=== PATIENT | female | born 1935 | race Caucasian/White ===

== ENCOUNTER 2016-08-09 13:45 | Emergency (ER) | payer MEDICARE ==
[2016-08-09 15:04] LABS: BASOPHILS 0.3 % (0.0-2.0); EOSINOPHILS 1.2 % (0-7); HEMATOCRIT 38.5 % (36.0-48.0); HEMOGLOBIN 12.9 g/dL (12-16); IMMATURE GRANULOCYTES 0.3 % (0-5); LYMPHOCYTES 28.5 % (15-50); MCH 32.9 pg (26.0-34.0); MCHC 33.5 g/dL (31.0-37.0); MCV 98.2 fL (80.0-100.0); MEAN PLATELET VOLUME 9.3 fL (7.4-10.4); MONOCYTES 7.1 % (2-11); NEUTROPHILS 62.6 % (40-80); PLATELET COUNT 410 10x3/uL (130-400); RBC 3.92 10x6/uL (4.00-5.40); RDW 12.2 % (11.5-14.5); WBC 9.2 10x3/uL (4.8-10.8)
[2016-08-09 15:25] LABS: APPEARANCE HAZY (CLEAR); BILIRUBIN NEGATIVE (NEGATIVE); COLOR YELLOW (YELLOW); GLUCOSE NEGATIVE (NEGATIVE); KETONE NEGATIVE (NEGATIVE); LEUKOCYTE ESTERASE 2+ (NEGATIVE); NITRITE NEGATIVE (NEGATIVE); PROTEIN NEGATIVE (NEGATIVE); SPECIFIC GRAVITY 1.005 (1.005-1.020); UROBILINOGEN NORMAL (NORMAL)
[2016-08-09 15:26] LABS: BACTERIA FEW /hpf (NONE SEEN); EPITHELIAL CELLS 0-5 /hpf (0-5); RED CELLS - URINE 0-5 /hpf (0-5)
[2016-08-09 15:35] LABS: ALBUMIN 3.5 g/dL (3.4-5.0); ANION GAP 13.3 mmol/L (8-16); BILIRUBIN - TOTAL 0.5 mg/dL (0.2-1.3); CREATININE - SERUM 1.1 mg/dL (0.6-1.3); POTASSIUM - SERUM 4.3 mmol/L (3.5-5.1); PROTEIN - SERUM 7.6 g/dL (6.4-8.2)
== END 2016-08-09 17:30 | disposition home or self-care (01) ==
LOC: D.ER 13:45
PROVIDERS: Family Medicine; Physician Assistant
DX: R55 Syncope and collapse (principal); J44.9 Chronic obstructive pulmonary disease, unspecified; K21.9 Gastro-esophageal reflux disease without esophagitis; H40.9 Unspecified glaucoma; I10 Essential (primary) hypertension; K27.9 Peptic ulcer, site unspecified, unspecified as acute or chronic, without hemorrhage or perforation

== ENCOUNTER 2020-01-22 17:08 | Inpatient (IN) | payer MEDICARE ==
[~2020-01-22] VITALS: Ht 152.4 cm; Wt 52.7 kg
[2020-01-22] MEDS ORDERED: NEXIUM40 MG PO (17:23)
[2020-01-22] MEDS ORDERED: VITAMIN D5000 UNI1 PO (17:23)
[2020-01-22] MEDS ORDERED: FOLIC ACID1 MG PO (17:23)
[2020-01-22] MEDS ORDERED: XANAX0.25 MG PO (17:24)
[2020-01-22] MEDS ORDERED: PROBIOTIC BLEN1 EACH PO (17:25)
[2020-01-22] MEDS ORDERED: TENORMIN25 MG PO (17:25)
[2020-01-22] MEDS ORDERED: PLAVIX75 MG PO (17:25)
[2020-01-22] MEDS ORDERED: TAPAZOLE 5 MG TA5 MG PO (17:25)
[2020-01-22] MEDS ORDERED: NORVASC2.5 MG PO (17:26)
[2020-01-22] MEDS ORDERED: FLOMAX0.4 MG PO (17:27)
[2020-01-22] MEDS ORDERED: LIPITOR40 MG PO (17:27)
[2020-01-22] MEDS ORDERED: REMERON15 MG PO (17:27)
[2020-01-22] MEDS ORDERED: TIMOPTIC 0.25% O5 M1 EACH EYE (17:28)
[2020-01-22] MEDS ORDERED: ALPHAGAN 0.2%5 ML EACH EYE (17:28)
[2020-01-22] MEDS ORDERED: ESTRACE 0.0142.5 GM VG (17:28)
[2020-01-22] MEDS ORDERED: HYDROCODON-ACE1 EA10 PO (17:29)
[2020-01-22] MEDS ORDERED: XALATAN 0.0052.5 ML EACH EYE (17:29)
[2020-01-22] MEDS ORDERED: ZANAFLEX4 MG PO (17:30)
[2020-01-22] MEDS ORDERED: PHENERGAN25 M1 PO (17:30)
[2020-01-22] MEDS ORDERED: VOLTAREN100 GM TOPICAL (17:31)
[2020-01-22] MEDS ORDERED: BENTYL10 MG PO (17:31)
[2020-01-22 17:53] VITALS: BP 192/85
[2020-01-22 18:21] LABS: BASOPHILS 0.4 % (0-2); EOSINOPHILS 2.1 % (0-7); HEMATOCRIT 37.5 % (36.0-48.0); HEMOGLOBIN 12.4 g/dL (12-16); IMMATURE GRANULOCYTES 0.2 % (0-5); MCH 33.8 pg (26.0-34.0); MCHC 33.1 g/dL (31.0-37.0); MCV 102.2 fL (80.0-100.0); MEAN PLATELET VOLUME 8.8 fL (7.4-10.4); MONOCYTES 5.3 % (2-11); PLATELET COUNT 439 10x3/uL (130-400); RBC 3.67 10x6/uL (4.00-5.40); RDW 12.8 % (11.5-14.5); WBC 10.3 10x3/uL (4.8-10.8)
[2020-01-22 18:32] LABS: APTT 30.6 SECONDS (22.8-39.4); INR 0.98 (0.85-1.17); PROTIME 12.9 SECONDS (11.6-15.0)
[2020-01-22 18:36] LABS: CALC OSMOLALITY 269 mosm/kg (275-300); CALCIUM 9.4 mg/dL (8.5-10.1); CARBON DIOXIDE 26.7 mmol/L (21.0-32.0); CHLORIDE - SERUM 99 mmol/L (98-107); CREATININE - SERUM 1.7 mg/dL (0.6-1.3); GLUCOSE 110 mg/dL (74-106); POTASSIUM - SERUM 4.2 mmol/L (3.5-5.1); SODIUM 134 mmol/L (136-145); UREA NITROGEN 15 mg/dL (7-18); eGFR NON AFRICAN AMERICAN 30 mL/min (90-120)
[2020-01-22 18:52] LABS: ALBUMIN 3.8 g/dL (3.4-5.0); ALKALINE PHOSPHATASE 100 U/L (30-120); ALT (SGPT) 22 U/L (10-68); BILIRUBIN - TOTAL 0.47 mg/dL (0.2-1.3); CKMB 0.7 U/L (0.0-3.6); CREATINE KINASE 59 UL (21-215); MAGNESIUM - SERUM 1.9 mg/dL (1.8-2.4); PROTEIN - SERUM 8.4 g/dL (6.4-8.2); THYROID STIMULATING HORMONE 2.82 uIU/mL (0.36-3.74); TROPONIN-I < 0.017 ng/mL (0.000-0.060)
[2020-01-22 19:00] VITALS: BP 194/86
[2020-01-22 19:44] LABS: BILIRUBIN NEGATIVE (NEGATIVE); GLUCOSE NEGATIVE (NEGATIVE); KETONE NEGATIVE (NEGATIVE); NITRITE NEGATIVE (NEGATIVE); UROBILINOGEN NORMAL (NORMAL)
[2020-01-22 20:08] VITALS: BP 115/64
--- NOTE | 2020-01-22 20:52 | NUR ---
PT RESTING WITH EYES CLOSED. RESPIRATIONS APPEAR EVEN AND NON LABORED. VSS, WILL CONTINUE TO MONITOR. DAUGHTER LEFT PHONE NUMBER WITH NURSE TO CALL WITH ROOM NUMBER.
[2020-01-22 21:34] VITALS: BP 130/70
[2020-01-22 22:08] VITALS: BP 146/75
[2020-01-23 00:39] VITALS: BP 163/88
[2020-01-23 03:02] VITALS: Ht 152.4 cm; Wt 52.7 kg
[2020-01-23 04:57] LABS: BASOPHILS 0.5 % (0-2); EOSINOPHILS 4.1 % (0-7); HEMATOCRIT 31.6 % (36.0-48.0); HEMOGLOBIN 10.5 g/dL (12-16); IMMATURE GRANULOCYTES 0.1 % (0-5); LYMPHOCYTES 36.9 % (15-50); MCH 33.5 pg (26.0-34.0); MCHC 33.2 g/dL (31.0-37.0); MONOCYTES 6.5 % (2-11); NEUTROPHILS 51.9 % (40-80); PLATELET COUNT 430 10x3/uL (130-400); RBC 3.13 10x6/uL (4.00-5.40); RDW 12.9 % (11.5-14.5); WBC 8.3 10x3/uL (4.8-10.8)
[2020-01-23 05:13] VITALS: BP 148/74
[2020-01-23 05:32] LABS: ALBUMIN 3.2 g/dL (3.4-5.0); ANION GAP 12.5 mmol/L (8-16); BILIRUBIN - TOTAL 0.28 mg/dL (0.2-1.3); CARBON DIOXIDE 24.3 mmol/L (21.0-32.0); CHOL - HDL RATIO 3.1 ratio (2.3-4.1); CREATININE - SERUM 1.6 mg/dL (0.6-1.3); LDL-HDL RATIO 1.4 ratio (1.5-3.5); MAGNESIUM - SERUM 1.8 mg/dL (1.8-2.4); PHOSPHOROUS 3.4 mg/dL (2.5-4.9); POTASSIUM - SERUM 3.8 mmol/L (3.5-5.1); PROTEIN - SERUM 7.6 g/dL (6.4-8.2); THYROID STIMULATING HORMONE 1.94 uIU/mL (0.36-3.74)
[2020-01-23 08:59] VITALS: BP 155/86
--- NOTE | 2020-01-23 11:00 | NUR ---
Rehab Prescreening Consult recieved and the chart has been reviewed. She is a new admit and has a neuro, PT and ST consult ordered and pending. Rehab will follow and see if she qualifies for the acute rehab after her work up has been completed. Aisha Foley RN Clinical Liaison, Rehab
--- NOTE | 2020-01-23 11:07 | NUR ---
I have reviewed this patient and I concur with the Shift Assessment completed by the Licensed Practical Nurse today this shift.
[2020-01-23 13:21] VITALS: BP 120/90
--- NOTE | 2020-01-23 14:47 | NUR ---
MRI BRAIN W/WO ORDERED ON PATIENT. HER GFR IS 32. DR RESENDIZ LOOKED AT THE WITHOUT IMAGES AND DETERMINED THAT SHE DID NOT NEED THE CONTRAST. EXAM WAS DONE WITHOUT.
--- NOTE | 2020-01-23 19:30 | NUR ---
PT IN BED, AAO X 3, RESP EVEN AND UNLABORED, NO DISTRESS NOTED, CL IN REACH, SR UP X 2.
[2020-01-23 20:00] VITALS: BP 219/99
[2020-01-24] VITALS: BP 179/83
[2020-01-24 04:00] VITALS: BP 104/93
[2020-01-24 05:52] LABS: BASOPHILS 0.5 % (0-2); EOSINOPHILS 4.4 % (0-7); HEMATOCRIT 33.9 % (36.0-48.0); HEMOGLOBIN 11.2 g/dL (12-16); IMMATURE GRANULOCYTES 0.3 % (0-5); LYMPHOCYTES 38.7 % (15-50); MCH 33.4 pg (26.0-34.0); MCV 101.2 fL (80.0-100.0); MONOCYTES 8.2 % (2-11); NEUTROPHILS 47.9 % (40-80); PLATELET COUNT 459 10x3/uL (130-400); RBC 3.35 10x6/uL (4.00-5.40); RDW 12.8 % (11.5-14.5); WBC 7.8 10x3/uL (4.8-10.8)
[2020-01-24 06:28] LABS: ANION GAP 14.4 mmol/L (8-16); CALCIUM 9.5 mg/dL (8.5-10.1); CARBON DIOXIDE 23.8 mmol/L (21.0-32.0); CREATININE - SERUM 1.8 mg/dL (0.6-1.3); MAGNESIUM - SERUM 1.9 mg/dL (1.8-2.4); POTASSIUM - SERUM 4.2 mmol/L (3.5-5.1)
[2020-01-24 08:00] VITALS: BP 187/97
[2020-01-24 11:00] VITALS: BP 133/72
[2020-01-24 15:00] VITALS: BP 170/76
--- NOTE | 2020-01-24 19:30 | NUR ---
PT IN BED, SON AT BEDSIDE, PT AAO X 1, CONFUSED AT TIMES. RESP EVEN AND UNLABORED. NO DISTRESS NOTED. CL IN REACH, SR UP X 2.
[2020-01-24 20:00] VITALS: BP 175/98
[2020-01-25] VITALS (9 sets, daily range): BP systolic 140–193; BP diastolic 75–110
[2020-01-25 05:25] LABS: BASOPHILS 0.6 % (0-2); EOSINOPHILS 2.8 % (0-7); HEMATOCRIT 35.3 % (36.0-48.0); HEMOGLOBIN 11.8 g/dL (12-16); IMMATURE GRANULOCYTES 0.3 % (0-5); MCH 33.7 pg (26.0-34.0); MCHC 33.4 g/dL (31.0-37.0); MCV 100.9 fL (80.0-100.0); MEAN PLATELET VOLUME 9.1 fL (7.4-10.4); MONOCYTES 8.4 % (2-11); NEUTROPHILS 43.9 % (40-80); RDW 12.8 % (11.5-14.5)
[2020-01-25 05:45] LABS: PLATELET COUNT 553 10x3/uL (130-400); WBC 10.4 10x3/uL (4.8-10.8)
[2020-01-25 05:51] LABS: ANION GAP 21.1 mmol/L (8-16); CREATININE - SERUM 1.9 mg/dL (0.6-1.3); MAGNESIUM - SERUM 1.8 mg/dL (1.8-2.4); PHOSPHOROUS 3.9 mg/dL (2.5-4.9); POTASSIUM - SERUM 3.6 mmol/L (3.5-5.1)
[2020-01-25 06:01] LABS: CARBON DIOXIDE 17.5 mmol/L (21.0-32.0)
--- NOTE | 2020-01-25 09:15 | NUR ---
CLONODINE 0.1 FOR BLOOD PRESSURE OF 193/90. REPORTED TO DR ON ROUNDS. 11:30 BLOOD PRESSURE 167/90.
--- NOTE | 2020-01-25 14:52 | NUR ---
REPORT CALLED TO REHAB AND FAMILY NOTIFIED OF MOVE.
--- NOTE | 2020-01-25 16:43 | MORECARE ---
CASE MANAGEMENT DISCHARGE SUMMARY PATIENT: ANGELINA HURTADO UNIT: [id number] ADM DATE: 01/22/20 AGE: 84 : 35 SEX: F ROOM/BED: D.2105 AUTHOR: GIUSEPPE BRADSHAW PHYSICIAN: REFERRING PHYSICIAN: DAYANA NICOLAS MD DATE OF SERVICE: 01/25/20 Discharge Plan Patient Name: ANGELINA HURTADO Facility: [facility]:[place] : 1935 Planned Disposition: Inpatient Rehab Facility Anticipated Discharge Date: 01/25/20 Discharge Date: Expected LOS: 3 Initial Reviewer: [email or web address] Initial Review Date: 01/22/2020 Generated: 01/25/20 5:42 pm Coverage Notice Reviewer: [email or web address] Gray Pope Notice Issued Date-Time: 01/25/2020 14:14 Notice Type: Patient Choice Letter Notice Delivered To: Family Member Relationship to Patient: Self Video Editing Intern Name: Miya Menendez Delivery Method: CERT - Certified Mail Jenny Days: Prior Verbal Notification: Recipient Understood Notice: Yes Recipient Signature: Yes Med Rec Note Co-signed by Attending: Coverage Notice Comment: Patient choice for [facility] rehab via telephone permission of daughter (POA) Miya Menendez. Reviewer: [email or web address] Gray Pope Notice Issued Date-Time: 01/25/2020 14:14 Notice Type: IM Discharge Notice Notice Delivered To: Family Member Relationship to Patient: Daughter Video Editing Intern Name: miya Menendez Delivery Method: CERT - Certified Mail Jenny Days: Prior Verbal Notification: Recipient Understood Notice: Yes Recipient Signature: Yes Med Rec Note Co-signed by Attending: Coverage Notice Comment: Patient choice for [facility] Rehab. Patient Name: ANGELINA HURTADO Page [phone] at 1643 All edits/amendments must be made on the electronic document DICTATION DATE: 01/25/201642 TAR DISTILLATION SUPERVISOR: BRAYAN 01/25/201642 RPT#: [id number] DC DATE: STATUS: ADM IN [facility] [address] [place] [address] END OF REPORT
--- NOTE | 2020-01-25 17:03 | NUR ---
TRANSFERED TO REHAB VIA BED AFTER CALLING REPORT.
--- NOTE | 2020-01-25 17:09 | MORECARE ---
CASE MANAGEMENT DISCHARGE SUMMARY PATIENT: ANGELINA HURTADO UNIT: [id number] ADM DATE: 01/22/20 AGE: 84 : 35 SEX: F ROOM/BED: D.2108 AUTHOR: GIUSEPPE BRADSHAW PHYSICIAN: REFERRING PHYSICIAN: DAYANA NICOLAS MD DATE OF SERVICE: 01/25/20 Discharge Plan Patient Name: ANGELINA HURTADO Facility: [facility]:[place] : 1935 Planned Disposition: Inpatient Rehab Facility Anticipated Discharge Date: 01/25/20 Discharge Date: 01/25/2020 Expected LOS: 3 Initial Reviewer: [email or web address] Initial Review Date: 01/22/2020 Generated: 01/25/20 6:08 pm Comments DCP- Discharge Planning Updated by [email or web address]: Angelica Pope on 01/25/20 3:[address] CM contacted patient's daughter (POA/Healthcare Proxy), regarding DC plans. Patient lives with her daughter (X10 years.) Patient has an aide with [facility], for the hours of 1-4 M-Fr. PCP: Dr. Nusrat Dobson. Pharmacy: [facility]. DME: BSC, Rollator, RW, Elevated toilet seat w/handles, w/c, shower seat built-in, grab bars X2, lift chair, over bed table. Daughter states that a caregiver with [place] [facility] through [facility] will be available for the patient 35 hours/week. Daughter states the patient is totally dependent with her care, is able to walk short distances, with assistance. Patient's daughter is in agreement with [facility] Rehab transfer. Notified daughter that the patient will go into room 1117 B. Daughter voices no other needs, at this time. DC IMM and Rehab choice agreed to over the phone. Original will be sent via certified mail to : Miya Schultz, [place], [place] [phone]. Coverage Notice Reviewer: [id number] - Angelica Pope Notice Issued Date-Time: 01/25/2020 14:14 Notice Type: Patient Choice Letter Notice Delivered To: Family Member Relationship to Patient: Self Research And Evaluation Analyst Name: Miya Menendez Delivery Method: CERT - Certified Mail Jenny Days: Prior Verbal Notification: Recipient Understood Notice: Yes Recipient Signature: Yes Med Rec Note Co-signed by Attending: Coverage Notice Comment: Patient choice for [facility] rehab via telephone permission of daughter (POA) Miya Menendez. Reviewer: [id number] Gray Pope Notice Issued Date-Time: 01/25/2020 14:14 Notice Type: IM Discharge Notice Notice Delivered To: Family Member Relationship to Patient: Daughter Research And Evaluation Analyst Name: miya Menendez Delivery Method: CERT - Certified Mail Jenny Days: Prior Verbal Notification: Recipient Understood Notice: Yes Recipient Signature: Yes Med Rec Note Co-signed by Attending: Coverage Notice Comment: Patient choice for [facility] Rehab. Last DP export: 01/25/20 3:43 p Patient Name: ANGELINA HURTADO Page [phone] at 1709 All edits/amendments must be made on the electronic document DICTATION DATE: 01/25/201707 AUDIO INSTALLER: BRAYAN 01/25/201707 RPT#: [id number] DC DATE:01/25/20 STATUS: DIS IN [facility] [address] [place] [address] END OF REPORT
== END 2020-01-25 17:04 | DRG 312 ==
LOC: D.ER 17:08 → D.M2 18:52
PROVIDERS: Family Medicine; ADMIT Family Medicine; ATTEND Family Medicine
DX: R55 Syncope and collapse (principal); N17.9 Acute kidney failure, unspecified; I10 Essential (primary) hypertension; E07.9 Disorder of thyroid, unspecified; J44.9 Chronic obstructive pulmonary disease, unspecified; K58.9 Irritable bowel syndrome, unspecified; M81.0 Age-related osteoporosis without current pathological fracture; R00.1 Bradycardia, unspecified; Z86.73 Personal history of transient ischemic attack (TIA), and cerebral infarction without residual deficits; M19.90 Unspecified osteoarthritis, unspecified site; R53.1 Weakness

== ENCOUNTER 2020-01-25 17:00 | Inpatient (IN) | payer MEDICARE ==
[~2020-01-25] VITALS: Ht 157.5 cm; Wt 52.2 kg
[~2020-01-25 17:00] MED LIST: ALPHAGAN 0.2%5 ML EACH EYE; BENTYL10 MG PO; ESTRACE 0.0142.5 GM VG; FLOMAX0.4 MG PO; FOLIC ACID1 MG PO; HYDROCODON-ACE1 EA10 PO; LIPITOR40 MG PO; NEXIUM40 MG PO; NORVASC2.5 MG PO; PHENERGAN25 M1 PO; PLAVIX75 MG PO; PROBIOTIC BLEN1 EACH PO; REMERON15 MG PO; TAPAZOLE 5 MG TA5 MG PO; TENORMIN25 MG PO; TIMOPTIC 0.25% O5 M1 EACH EYE; VITAMIN D5000 UNI1 PO; VOLTAREN100 GM TOPICAL; XALATAN 0.0052.5 ML EACH EYE; XANAX0.25 MG PO; ZANAFLEX4 MG PO
[2020-01-25 23:08] VITALS: BP 116/82; BMI 22.5
--- NOTE | 2020-01-26 02:25 | NUR ---
PATIENT EYES CLOSED. RESPIRATIONS 18 & EVEN. BED LOW. ALARM ON. CALL LIGHT WITHIN REACH. WILL CONTINUE TO MONITOR.
[2020-01-26 05:55] LABS: BASOPHILS 0.7 % (0-2); HEMOGLOBIN 10.8 g/dL (12-16); IMMATURE GRANULOCYTES 0.2 % (0-5); LYMPHOCYTES 30.9 % (15-50); MCH 33.5 pg (26.0-34.0); MCHC 33.8 g/dL (31.0-37.0); MCV 99.4 fL (80.0-100.0); MEAN PLATELET VOLUME 8.6 fL (7.4-10.4); MONOCYTES 10.3 % (2-11); NEUTROPHILS 56.9 % (40-80); PLATELET COUNT 478 10x3/uL (130-400); RBC 3.22 10x6/uL (4.00-5.40); RDW 12.9 % (11.5-14.5)
[2020-01-26 06:09] LABS: ANION GAP 16.9 mmol/L (8-16); CALCIUM 9.7 mg/dL (8.5-10.1); CARBON DIOXIDE 20.5 mmol/L (21.0-32.0); CREATININE - SERUM 1.6 mg/dL (0.6-1.3); POTASSIUM - SERUM 3.4 mmol/L (3.5-5.1)
[2020-01-26 11:06] VITALS: BP 169/103
[2020-01-26 15:42] VITALS: Ht 157.5 cm; Wt 52.2 kg
--- NOTE | 2020-01-26 19:45 | NUR ---
PATIENT RECEIVED LAYING IN BED. ASSESSMENT & VITAL SIGNS DONE. BED LOW. CALL LIGHT WITHIN REACH. ALARM ON. WILL CONTINUE TO MONITOR.
[2020-01-26 20:34] VITALS: BP 189/85
--- NOTE | 2020-01-27 01:24 | NUR ---
PATIENT AWAKE & ASKED TO HAVE HER GOWN BACK ON. GOWN SLEEVES SNAPPED TOGETHER. PATIENT GOWN ON. DID NOT NEED TO TOILET. BED LOW. ALARM ON. CALL LIGHT WITHIN REACH. WILL CONTINUE TO MONITOR.
--- NOTE | 2020-01-27 03:47 | NUR ---
PATIENT EYES OPEN. ASSIST WITH TURNING TV OFF. BED LOW. ALARM ON. CALL LIGHT WITHIN REACH. WILL CONTINUE TO MONITOR.
[2020-01-27 07:42] VITALS: BP 102/76
--- NOTE | 2020-01-27 08:23 | NUR ---
PT RESTING IN BED WITH EYES OPEN CALL LIGHT IN REACH WILL MONITER
--- NOTE | 2020-01-27 18:23 | NUR ---
PT RESTING IN BED WITH EYES OPEN CALL LIGHT IN REACH NO PROBLEMS WILL MONITER
[2020-01-27 20:00] VITALS: BP 180/73
--- NOTE | 2020-01-27 20:00 | NUR ---
PATIENT RECEIVED LAYING IN BED. ASESSSMENT & VITAL SIGNS DONE. PATIENT CONFUSED THOUT THIS NURSE WAS HER NIECE. PATIENT PARANOIA ABOUT PEOPLE TRYING TO GET IN. PATIENT TOLD " YOUR IN THE HOSPITAL. PEOPLE CANT COME IN THE DOORS ARE LOCKED UPSTAIRS." PATIENT SATISFIED WITH ANSWER. BED LOW. ALARM ON. CALL LIGHT WITHIN REACH. [facility].
[2020-01-28 08:00] VITALS: BP 173/69
--- NOTE | 2020-01-28 08:12 | NUR ---
ALERT AND ORIENTED. EATING BREAKFAST. CL IN REACH. CONFUSED.
--- NOTE | 2020-01-28 09:28 | NUR ---
REFUSED TO TAKE SHOWER.
--- NOTE | 2020-01-28 10:19 | NUR ---
SHOWER WAS GIVEN PER OT.
--- NOTE | 2020-01-28 13:51 | NUR ---
CONFUSED. NO CHANGE IN ASSESSMENT. NO C/O PAIN. ALARM ON.
--- NOTE | 2020-01-28 16:32 | NUR ---
PARTICIPATED IN THERAPY TODAY. NO DISTRESS NOTED.
[2020-01-28 19:27] VITALS: BP 164/74
--- NOTE | 2020-01-28 19:37 | NUR ---
PT IN BED WATCHING TV, NO IMMEDIATE NEEDS NOTED, RESPIRATIONS EVEN UNLABORED, FALL PRECAUTIONS IN PLACE, FLUIDS/CALL LIGHT WITHIN REACH
--- NOTE | 2020-01-28 22:40 | NUR ---
PT ASLEEP AROUSES EASILY TO VOICE, NO IMMEDIATE NEEDS NOTED, RESPIRATIONS EVEN UNLABORED, FALL PRECAUTIONS IN PLACE, FLUIDS/CALL LIGHT WITHIN REACH
--- NOTE | 2020-01-29 01:34 | NUR ---
PT ASLEEP AROUSES EASILY TO VOICE, NO IMMEDIATE NEEDS NOTED, RESPIRATIONS EVEN UNLABORED, FALL PRECAUTIONS IN PLACE, FLUIDS/CALL LIGHT WITHIN REACH
[2020-01-29 06:13] LABS: BASOPHILS 0.4 % (0-2); EOSINOPHILS 5.7 % (0-7); HEMATOCRIT 31.9 % (36.0-48.0); HEMOGLOBIN 10.8 g/dL (12-16); IMMATURE GRANULOCYTES 0.2 % (0-5); LYMPHOCYTES 38.4 % (15-50); MCH 33.5 pg (26.0-34.0); MCHC 33.9 g/dL (31.0-37.0); MCV 99.1 fL (80.0-100.0); MEAN PLATELET VOLUME 8.9 fL (7.4-10.4); NEUTROPHILS 44.3 % (40-80); PLATELET COUNT 434 10x3/uL (130-400); RBC 3.22 10x6/uL (4.00-5.40); RDW 12.6 % (11.5-14.5); WBC 8.5 10x3/uL (4.8-10.8)
[2020-01-29 06:22] LABS: ANION GAP 12.4 mmol/L (8-16); CALCIUM 8.9 mg/dL (8.5-10.1); CARBON DIOXIDE 24.1 mmol/L (21.0-32.0); CREATININE - SERUM 1.4 mg/dL (0.6-1.3); POTASSIUM - SERUM 3.5 mmol/L (3.5-5.1)
[2020-01-29 07:30] VITALS: BP 183/68
--- NOTE | 2020-01-29 13:15 | NUR ---
Nutrition Follow-up: Diet: Cardiac Mech Soft with Chopped Meats PO intake: ~49% average x last 7 meals. States that her appetite is down. She states that she cannot have Ensure/Boost because she is allergic to anything with milk in it. States that she is willing to try Ensure Clear. Last BM: 01/26/20. Wt: 115# (01/26/20) Meds noted: K-dur, remeron, bentyl. Labs noted: Na 133(L), BUN 19(H), Cr 1.4(H), GFR 38(L). Recommend continue current diet. Will add Ensure Clear for patient to try. RD following.
--- NOTE | 2020-01-29 19:25 | NUR ---
PT ASLEEP, NO NEEDS NOTED, FALL PRECAUTIONS IN PLACE, FLUIDS/CALL LIGHT WITHIN REACH, RESPIRATIONS EVEN AND UNLABORED
[2020-01-29 21:07] VITALS: BP 175/86
[2020-01-30 06:44] LABS: BASOPHILS 0.7 % (0-2); HEMATOCRIT 29.8 % (36.0-48.0); HEMOGLOBIN 10.2 g/dL (12-16); IMMATURE GRANULOCYTES 0.3 % (0-5); LYMPHOCYTES 38.3 % (15-50); MCH 33.9 pg (26.0-34.0); MCHC 34.2 g/dL (31.0-37.0); MONOCYTES 11.2 % (2-11); NEUTROPHILS 42.5 % (40-80); PLATELET COUNT 447 10x3/uL (130-400); RBC 3.01 10x6/uL (4.00-5.40); RDW 12.8 % (11.5-14.5); WBC 7.6 10x3/uL (4.8-10.8)
[2020-01-30 06:49] LABS: ANION GAP 12.5 mmol/L (8-16); CALCIUM 9.4 mg/dL (8.5-10.1); CARBON DIOXIDE 22.4 mmol/L (21.0-32.0); CREATININE - SERUM 1.4 mg/dL (0.6-1.3); POTASSIUM - SERUM 3.9 mmol/L (3.5-5.1)
--- NOTE | 2020-01-30 08:00 | NUR ---
SHIFT ASSMT COMPLETED.CL IN REACH.TAKEN TO BATHROOM AND BACK.BREAKFAST GIVEN.
[2020-01-30 08:08] VITALS: BP 170/85
--- NOTE | 2020-01-30 19:44 | NUR ---
PT ASLEEP AROUSES EASILY TO VOICE, RESPIRATIONS EVEN AND UNLABORED, NO IMMEDIATE NEEDS NOTED, FALL PRECAUTIONS IN PLACE, FLUIDS/CALL LIGHT WITHIN REACH
[2020-01-30 21:15] VITALS: BP 183/106
--- NOTE | 2020-01-31 07:30 | NUR ---
RECEIVED THIS AM RESTING QUIETLY IN BED.DENIES NEEDS.ASSESSMENT COMPLETED.CL IN EASY REACH,BED IN LOW POSITION.WILL CONTINUE WITH CURRENT PLAN OF CARE.
[2020-01-31 08:01] VITALS: BP 166/76
--- NOTE | 2020-01-31 12:36 | NUR ---
CARE TEAM MEETING: PATIENT ADMITTED TO REHAB FROM ACUTE FLOOR. HER PCP IS DR. CRISTHIAN CHACON. DME AT HOME : BSC, ROLLATOR, ROLLING WALKER AND A LIFT CHAIR. SHE HAS ASSISTANCE WITH [facility] ON [place] M-FR. 1-4. PATIENT LIVES WITH HER DAUGHTER WHICH IS HER POA AND WILL DISCHARGE BACK HOME WITH HER. HER TENATIVE DC DATE IS 02/05/20. WILL CONTINUE TO FOLLOW WITH PATIENT.
[2020-01-31 21:07] VITALS: BP 181/75
--- NOTE | 2020-02-01 00:47 | NUR ---
PT ASLEEP, AROUSES EASILY TO VOICE, RESPIRATIONS EVEN AND UNLABORED, NO IMMEDIATE NEEDS NOTED AT THIS TIME, FALL PRECAUTIONS IN PLACE, FLUIDS/CALL LIGHT WITHIN REACH
--- NOTE | 2020-02-01 04:20 | NUR ---
PT ASLEEP, AROUSES EASILY TO VOICE, RESPIRATIONS EVEN AND UNLABORED, NO IMMEDIATE NEEDS NOTED AT THIS TIME, FALL PRECAUTIONS IN PLACE, FLUIDS/CALL LIGHT WITHIN REACH
[2020-02-01 06:00] LABS: BASOPHILS 0.5 % (0-2); EOSINOPHILS 5.1 % (0-7); HEMATOCRIT 30.4 % (36.0-48.0); HEMOGLOBIN 10.2 g/dL (12-16); IMMATURE GRANULOCYTES 0.4 % (0-5); LYMPHOCYTES 37.2 % (15-50); MCH 33.1 pg (26.0-34.0); MCHC 33.6 g/dL (31.0-37.0); MCV 98.7 fL (80.0-100.0); MEAN PLATELET VOLUME 8.7 fL (7.4-10.4); MONOCYTES 11.9 % (2-11); NEUTROPHILS 44.9 % (40-80); PLATELET COUNT 498 10x3/uL (130-400); RBC 3.08 10x6/uL (4.00-5.40); RDW 12.7 % (11.5-14.5); WBC 7.4 10x3/uL (4.8-10.8)
[2020-02-01 06:28] LABS: ANION GAP 17.8 mmol/L (8-16); CALCIUM 9.3 mg/dL (8.5-10.1); CREATININE - SERUM 1.5 mg/dL (0.6-1.3); POTASSIUM - SERUM 3.8 mmol/L (3.5-5.1)
--- NOTE | 2020-02-01 08:00 | NUR ---
ASSESSMENT NOTED. ALERT AND ORIENTED X3, VSS. ASSIST TO RESTROOM WITH MOD ASSIST VIA WC. BACK TO BEDSIDE FOR BREAKFAST. CL AT SIDE
[2020-02-01 08:28] VITALS: BP 170/75
--- NOTE | 2020-02-01 12:48 | NUR ---
Nutrition Follow-up: Diet: Cardiac Mech Soft with Chopped Meats + Ensure Clear TID PO intake: ~63% average x last 4 meals. She states that her appetite is a lot better than when she first came into rehab. States that she likes the Ensure Clear and has been drinking them. Last BM: 01/26/20 x 6 days now. Wt: 115# (01/26/20) Meds noted: K-dur, remeron, bentyl. Labs noted: GFR 35(L) Recommend continue current diet or per LATHE WINDER recommendations. Continue Ensure Clear TID. May consider increase in bowel regimen to promote BM regularity and help prevent decreased appetite. RD following.
--- NOTE | 2020-02-01 14:22 | NUR ---
UP AT BEDSIDE DENIES NEEDS OR DISCOMFORT AT PRSENT. HOB ELEVATED. CL AT SIDE
[2020-02-01 19:38] VITALS: BP 148/71
--- NOTE | 2020-02-01 20:00 | NUR ---
PATIENT RECEIVEDE SITTING UP IN BED. ASSESSMENT & VITAL SIGNS DONE. NO C/O PAIN OR DISTRESS. BED. LOW. CALL LIGHT WITHIN REACH. WILL CONTINUE TO MONITOR.
--- NOTE | 2020-02-02 01:19 | NUR ---
PATIENT USED CALL LIGHT FOR ASSIST. MINIMAL ASSIST INTO & OUT OF BED. VOID ONLY. RETURNED TO LOW BED. ALARM ON. CALL LIGHT WITHIN REACH. WILL CONTINUE TO MONITOR.
[2020-02-02 08:00] VITALS: BP 150/83
--- NOTE | 2020-02-02 08:00 | NUR ---
SHIFT ASSMT COMPLETED.
--- NOTE | 2020-02-02 19:40 | NUR ---
PATIENT RECEIVED LAYING IN BED. ASSESSMENT & VITAL SIGNS DONE. BED LOW. ALARM ON. CALL LIGHT WITHIN REACH. WILL CONTINUE TO MONITOR.
[2020-02-02 21:00] VITALS: BP 150/69
--- NOTE | 2020-02-03 01:11 | NUR ---
WHILE DOING THIS ROUND PATIENT AWAKE. PATIENT STATED "I NEED TO GO TO THE BATHROOM." PATIENT MINIMAL ASSIST INTO & OUT OF WHEHAIR. VOID ONLY. DENTURES PLACE IN DENTURE CUP WITH VACUUM KETTLE COOK. PATIENT RETURNED TO LOW BED. ALARM ON. CALL LIGHT WITHIN REACH. WILL CONTINUE TO MONITOR.
--- NOTE | 2020-02-03 01:26 | NUR ---
I have reviewed this patient and I concur with the Shift Assessment completed by the Licensed Practical Nurse today this shift.
--- NOTE | 2020-02-03 08:00 | NUR ---
SHIFT ASSMT COMPLETED,CL IN REACH.
[2020-02-03 08:26] VITALS: BP 157/85
--- NOTE | 2020-02-03 12:00 | NUR ---
EATING LUNCH UP IN WC.
--- NOTE | 2020-02-03 13:30 | NUR ---
RETURNED TO BED.CL IN REACH.
[2020-02-03 20:00] VITALS: BP 150/69
--- NOTE | 2020-02-03 20:00 | NUR ---
PATIENT RECEIVED SITTING UP IN WHEELCHAIR. ASSESSMENT & VITAL SIGNS DONE. PATIENT TOILETED. VOID ONLY. RETURNED TO BED MINIMAL ASSIST. LINENS PLACED OVER PATIENT. ALARM ON. CALL LIGHT WITHIN REACH. WILL CONTINUE TO MONITOR.
--- NOTE | 2020-02-04 01:01 | NUR ---
PATIENT USED CALL LIGHT FOR ASSIST. MINIMAL ASSIST IN & OUT OF WHEELCHAIR. MININAL ASSIST ONTO COMMODE. VOID ONLY. RETURNED TO LOW BED. ALARM ON. CALL LIGHT WITHIN REACH. WILL CONTINUE TO MONITOR.
--- NOTE | 2020-02-04 04:32 | NUR ---
I have reviewed this patient and I concur with the Shift Assessment completed by the Licensed Practical Nurse today this shift.
--- NOTE | 2020-02-04 04:34 | NUR ---
PATIENT USED CALL LIGHT FOR ASSIST. PATIENT MINIMAL ASSIST INTO & OUT OF BED & WHEELCHAIR. VOID ONLY. CALL LIGHT WITHIN REACH. ALARM ON. CALL LIGHT WITHIN REACH. WILL CONTINUE TO MONITOR.
[2020-02-04 07:10] LABS: BASOPHILS 0.4 % (0-2); EOSINOPHILS 3.9 % (0-7); HEMATOCRIT 29.5 % (36.0-48.0); IMMATURE GRANULOCYTES 0.4 % (0-5); LYMPHOCYTES 31.7 % (15-50); MCH 33.6 pg (26.0-34.0); MCHC 33.9 g/dL (31.0-37.0); MEAN PLATELET VOLUME 8.6 fL (7.4-10.4); MONOCYTES 9.9 % (2-11); NEUTROPHILS 53.7 % (40-80); PLATELET COUNT 495 10x3/uL (130-400); RBC 2.98 10x6/uL (4.00-5.40); RDW 12.5 % (11.5-14.5); WBC 9.3 10x3/uL (4.8-10.8)
[2020-02-04 07:23] LABS: ANION GAP 15.4 mmol/L (8-16); CALCIUM 9.3 mg/dL (8.5-10.1); CREATININE - SERUM 1.5 mg/dL (0.6-1.3); POTASSIUM - SERUM 4.4 mmol/L (3.5-5.1)
[2020-02-04 08:00] VITALS: BP 176/79
--- NOTE | 2020-02-04 15:34 | NUR ---
SPOKE WITH DAUGHTER GISELA AND SHE IS UNABLE TO CARE FOR HER MOTHER AT THIS TIME AND WOULD LIKE A REFERRAL TO BE FAXED TO [facility] . A REFERRAL HAS BEEN FAXED. WILL CONTINUE TO FOLLOW WITH PATIENT.
--- NOTE | 2020-02-04 20:10 | NUR ---
PT IN BED ASLEEP, AROUSES EASILY TO VOICE, NO NEEDS NOTED, RESPIRATIONS EVEN AND UNLABORED, FALL PRECAUTIONS IN PLACE, FLUIDS/CALL LIGHT WITHIN REACH
[2020-02-04 20:11] VITALS: BP 174/85
--- NOTE | 2020-02-05 00:45 | NUR ---
PT IN BED ASLEEP, AROUSES EASILY TO VOICE, NO NEEDS NOTED, RESPIRATIONS EVEN AND UNLABORED, FALL PRECAUTIONS IN PLACE, FLUIDS/CALL LIGHT WITHIN REACH
[2020-02-05 07:30] VITALS: BP 169/80
--- NOTE | 2020-02-05 07:30 | NUR ---
RECEIVED RESTING QUIETLY IN BED.AROUSES EASILY.ASSESSMENT COMPLETED.DENIES NEEDS AND PAIN.CL IN EASY REACH,BED IN LOW POSITION.BED ALARM ON AND WORKING.
[2020-02-05] MEDS ORDERED: HYDROCODON-ACE1 EAC7 PO (10:33)
--- NOTE | 2020-02-05 10:34 | RHP ---
PATIENT: ANGELINA HURTADO MEDICAL RECORD: [id number] ACCOUNT: [id number] LOCATION:[facility] : [birth year] ADMISSION DATE: 01/25/20 REHABILITATION HISTORY AND PHYSICAL EXAMINATION POST ADMISSION PHYSICIAN EXAMINATION POST ADMISSION PHYSICAL EXAMINATION AND HISTORY AND PHYSICAL ADMITTING DIAGNOSIS: Debility. HISTORY OF PRESENT ILLNESS: The patient admitted secondary to debility, secondary to oropharyngeal dysphagia. She is an 84-year-old female who presented to the ED due to syncopal episode. The patient stated that she had multiple syncopal episodes in the past. She was recently admitted to [facility]. She was told that she had had a previous CVA, she stated that she has been taking Plavix, but it caused her severe stomach discomfort, so she quit this. She has been having problems with elevated blood pressure. She has been lightheaded, dizzy and felt weak. She has been followed by home health and a nursing clerk. Her daughter reports that she has had some brief dysarthric movements at time, loss of her bowel and bladder control at times. Neurology was consulted. She has been progressing with physical and occupational therapy. She needs to be monitored closely with any new neurological changes, any medication adjustment. She has got proximal muscle weakness, balance deficits, impaired mobility, gait disturbance, limited safety awareness. She has medical complexity and risk for falls. The patient fatigues easily. She has got inability to care for herself. These are all barriers to her discharge home. She lives at home with her daughter, was independent with ADLs and mobility prior to this. She is currently set up for mod assist for ADLs and mod assist for mobility. She and her daughter like to return home at her prior level of functioning. COMORBIDITIES: Include weakness, oropharyngeal dysphagia, syncope, osteoarthritis, osteoporosis, history of CVA, and tobacco use. PAST MEDICAL HISTORY: Significant for CVA, got a history of hypertension, COPD, acid reflux, diverticulitis, arthritis, irritable bowel syndrome, osteoporosis, and tobacco use. PAST SURGICAL HISTORY: Includes cataracts, appendectomy, hysterectomy, eye surgery, and a thyroid nodule removed. ALLERGIES: INCLUDE SULFA, ASPIRIN. SHE HAS GOT ALPHAGAN AND/OR ALLERGY TO CALADRYL, KEFLEX, NEXIUM, VIBRAMYCIN, IODINE, AVELOX, ZOFRAN, RED DYE, ZOLOFT, PROTONIX, CARAFATE, ULTRAM, ZITHROMAX, DIPHENHYDRAMINE. CURRENT MEDICATIONS: Include Imodium as needed. She is on Floranex daily. She is on Flomax 0.4 mg daily. She is on Tapazole 5 mg daily, folic acid 1 mg daily, omeprazole 20 mg daily, Plavix 75 mg daily, vitamin D 5000 units daily, atenolol 12.5 mg daily, Timoptic eyedrops daily, Remeron 15 mg at bedtime, Xalatan eye drops. She is on estradiol vaginal cream 1 applicator weekly. She is on Bentyl 10 mg q.i.d., Voltaren 2 grams q.i.d., atorvastatin 40 mg at bedtime, amlodipine 2.5 mg daily, Zanaflex 8 mg q.8 hours p.r.n., Phenergan 25 mg q.6 hours p.r.n., [place] 5/325 one tab q.6 hours p.r.n., and Xanax 0.25 mg t.i.d. HABITS: Does have a history of tobacco use. HISTORY AND PHYSICAL [id number] ANGELINA HURTADO FAMILY HISTORY: Noncontributory. SOCIAL HISTORY: The patient hopes to return back home and get back to her prior level of functioning. REVIEW OF SYSTEMS: GENERAL: Does complain of weakness and fatigue. HEENT: Denies cold, cough, or congestion. CARDIOVASCULAR: Denies chest pain. PHYSICAL EXAMINATION: VITAL SIGNS: Stable, afebrile. GENERAL: Elderly female, in no acute distress upon exam. HEENT: Normocephalic and atraumatic. Mucosa moist. NECK: Supple. No lymphadenopathy. LUNGS: Clear in upper che. HEART: Regular rate and rhythm. She does have a holosystolic murmur. ABDOMEN: Soft, benign, and nondistended. Positive bowel sounds times 4. EXTREMITIES: No clubbing, cyanosis or edema. NEUROLOGIC: She does have proximal muscle weakness. LABORATORY DATA: Her white count is 9000, H&H of 10.8 and 32.0, and platelet count is 478. Chemistry shows a sodium of 133, potassium 3.4, BUN and creatinine of 16 and 1.6, and blood sugar is noted to be 94. 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 The patient has potential to make improvement. We instituted the following multidisciplinary therapies including, but not limited to physical, occupational, respiratory, speech, nutritional services, prosthetics and orthotics. Given her complex medical condition and risks for more complications, rehabilitation services cannot be provided at a low level of care such as skilled nurse facility. PLAN: 1. Admit to [facility] for inpatient therapy to include the following disciplines; A. Physical therapy to improve gait, all transfer skills and bed mobility to a modified independent level. B. Occupational therapy to improve activities of daily living. C. Case management to help with discharge planning and placement options. D. Nutrition to assist with nutritional needs. E. Rehabilitation nursing to assist in monitoring the patient's underlying medical medications and to assist with any type of bowel or bladder management. 2. The patient's current medication and medical care will be continued. 3. The patient will be placed on standard fall precautions. 4. The patient's estimated length of stay is approximately 7-10 days. 5. We will discuss this patient during care team staff meeting this week. I am going to go ahead and replace her potassium and I will see again in the a.m. TRANSINT:[id number] Voice Confirmation ID: [id number] DOCUMENT ID: [id number] OLE notes whether there has been none or any medical/functional change since admission: HISTORY AND PHYSICAL [id number] ANGELINA HURTADO - No change since preadmission screen. OLE attests patient continues to be appropriate for IRF: - Continues to be appropriate. GHAZALA AGUILAR MD at 1034 CC: [id number] DICTATION DATE: 01/28/20 0815 RECREATION INSTRUCTOR: 01/28/20 1344 ADM IN [facility] [address] [place] [id number]
[2020-02-05] MEDS ORDERED: NORVASC10 MG PO (13:12)
[2020-02-05] MEDS ORDERED: K-DUR20 MEQ PO (13:18)
[2020-02-05] MEDS ORDERED: MELATONIN 3 MG1 TAB PO (13:18)
[2020-02-05] MEDS ORDERED: IMODIUM2 MG PO (13:19)
--- NOTE | 2020-02-05 13:45 | NUR ---
REPORT CALLED TO MARIANNE HIGH RECEIVING NURSE AT [facility].THEY WILL PICK HER UP IN ABOUT 30 MIN.
--- NOTE | 2020-02-05 13:50 | NUR ---
ASSISTED WITH DRESSING FOR TRANSFER.DISCUSSED MEDS AND FOLLOW UP CARE WITH DR.DON CHÁVEZ AFTER DISCHARGE FROM [facility].ALL QUESTIONS ANSWERED.
--- NOTE | 2020-02-05 14:10 | NUR ---
DAUGHTER CALLS,INFORMED OF TRANSFER,SHE WILL MEET HER MOTHER AT THE [facility].
--- NOTE | 2020-02-05 14:20 | NUR ---
DISCHARGED TO [facility] VIA WHEELCHAIR TO [place].DISCHARGES INSTRUCTIONS,PRESCRIPTIONS GIVEN TO STAFF.HAS ALL PERSONAL ITEMS.
--- NOTE | 2020-02-06 10:21 | NUR ---
PATIENT HAS BEEN ACCEPTED TO THE [facility] AND DISCHARGED THERE ON 02/05/20.[place] SIGNED, IMM SERVED AND EXPLAINED, ONE GIVEN TO PATIENT AND ONE FILED IN CHART. NO HOME HEALTH OR DME NEEDED AT THIS TIME. AN APPOINTMENT WITH DR. JENNIFER CHACON WILL BE MADE AT TIME OF DISCHARGE FROM THE FACILITY. NO COMPARE DATA REVIEWED PATIENT SPOUSE IS AT THAT FACILITY. DISCHARGE INSTRUCTIONS FAXED TO PCP, SNF AND REVIEWED WITH PATIENT PER CHARLIE HOUSE.
== END 2020-02-05 14:20 | DRG 92 ==
LOC: D.REHAB 17:00
PROVIDERS: ADMIT Emergency Medicine; ATTEND Emergency Medicine
DX: G72.89 Other specified myopathies (principal); N17.9 Acute kidney failure, unspecified; R53.81 Other malaise; R13.12 Dysphagia, oropharyngeal phase; R53.1 Weakness; R55 Syncope and collapse; M19.90 Unspecified osteoarthritis, unspecified site; M81.0 Age-related osteoporosis without current pathological fracture; Z72.0 Tobacco use; K21.9 Gastro-esophageal reflux disease without esophagitis; I10 Essential (primary) hypertension; J44.9 Chronic obstructive pulmonary disease, unspecified; R26.9 Unspecified abnormalities of gait and mobility; F32.9 Major depressive disorder, single episode, unspecified; F41.9 Anxiety disorder, unspecified